=== PATIENT | female | born 1955 | race Caucasian/White ===

== ENCOUNTER 2016-09-22 17:26 | Emergency (ER) | payer OTHER ==
[~2016-09-22] VITALS: Ht 165.1 cm; Wt 77.1 kg
[2016-09-22 17:31] VITALS: BP 117/74; PULSE 75; RESP 17; TEMP 98.8; O2SAT 98
--- NOTE | 2016-09-22 17:31 | NUR ---
Patient triaged and placed in waiting room. VSS and patient appears in no acute distress at this time. Accompanied by self, awaiting available bed, and MD notified of need for MSE.
[2016-09-22 19:15] LABS: BASOPHILS % (AUTO) 0.5 % (0.0-2.0); EOSINOPHILS # (AUTO) 0.2 K/uL (0.0-0.4); EOSINOPHILS % (AUTO) 1.8 % (0.0-4.0); HEMATOCRIT 39.3 % (36-48); HEMOGLOBIN 13.5 g/dL (12.0-16.0); LYMPHOCYTES # (AUTO) 2.7 K/uL (1.0-5.5); LYMPHOCYTES % (AUTO) 30.7 % (20.5-51.5); MEAN CORPUSCULAR HEMOGLOBIN 31 pg (27-31); MEAN CORPUSCULAR HGB CONC 34 % (32-36); MEAN CORPUSCULAR VOLUME 89 fL (79.0-98.0); MONOCYTES # (AUTO) 0.5 K/uL (0.0-1.0); MONOCYTES % (AUTO) 6.2 % (1.7-9.3); NEUTROPHILS # (AUTO) 5.3 K/uL (1.8-7.7); NEUTROPHILS % (AUTO) 60.8 % (40.0-70.0); PLATELET COUNT (AUTO) 432 K/uL (130-430); RED BLOOD CELL COUNT(AUTO) 4.41 MIL/uL (4.2-6.2); RED CELL DISTRIBUTION WIDTH 11.9 % (9.0-15.0); WHITE BLOOD COUNT (AUTO) 8.7 K/uL (4.8-10.8)
[2016-09-22 19:21] LABS: CALCIUM 8.8 mg/dL (8.4-11.0); CREATININE 0.95 mg/dL (0.55-1.30); POTASSIUM 3.6 mmol/L (3.5-5.1)
[2016-09-22 19:25] LABS: ALBUMIN 3.5 g/dL (3.4-4.8); TOTAL BILIRUBIN 0.3 mg/dL (0.0-1.0); TOTAL PROTEIN, SERUM 6.8 g/dL (6.4-8.3)
--- NOTE | 2016-09-22 20:15 | NUR ---
ESME Anderson at bedside examining patient.
--- NOTE | 2016-09-22 20:15 | NUR ---
Placed in room 03 . Placed on warp coiler, blood pressure machine and pulse oximeter. To gown for exam. Side rails up. Report given to KASIA Barkley.
--- NOTE | 2016-09-22 20:16 | NUR ---
Patient AAO x4, sitting in bed, c/o lower abd pain 01/18 with N/V since 1pm, had lunch at [employer] and shortly after developed symptoms. Denies chest pain, denies shortness of breath. No acute distress noted. Will continue to monitor.
--- NOTE | 2016-09-22 20:20 | NUR ---
ER at bedside examining patient.
[2016-09-22] MEDS ORDERED: KETOROLAC TROMETHAMINE 30 MG VIAL IVP ONE (20:30)
[2016-09-22] MEDS ORDERED: MAG HYDROX/AL HYDROX/SIMETH 30 ML, LIDOCAINE VISCOUS 2% 15ML (PO) 10 ML, BELLADONNA ALK... PO ONE ×3 (20:30)
[2016-09-22] MEDS ORDERED: NACL 0.9% 1,000 ML IV ONE (20:30)
[2016-09-22] MEDS ORDERED: ONDANSETRON HCL 4 MG/2 ML VIAL IVP ONE (20:30)
--- NOTE | 2016-09-22 20:55 | NUR ---
#22 gauge angiocath placed to L forearm. Use of asceptic technique. Opsite placed over site. Blood return noted. Flushed with 10 cc of normal saline. No evidence of infiltration noted. Patient tolerated well.
[2016-09-22 21:33] LABS: BILIRUBIN,URINE NEGATIVE (NEGATIVE); BLOOD, URINE NEGATIVE (NEGATIVE); CLARITY/URINE CLEAR (CLEAR); COLOR,URINE YELLOW (YELLOW); GLUCOSE,URINE NEGATIVE (NEGATIVE); KETONES,URINE NEGATIVE (NEGATIVE); LEUKOCYTE ESTERASE ,URINE NEGATIVE (NEGATIVE); NITRITE, URINE NEGATIVE (NEGATIVE); PH,URINE 5.5 (5.0-8.0); PROTEIN URINE NEGATIVE (NEGATIVE); UROBILINOGEN,URINE 0.2 (0.2-1.0)
--- NOTE | 2016-09-22 21:57 | NUR ---
Pt on stable condition, states pain level is 5/10 at this time
[2016-09-22 22:59] VITALS: BP 115/75; PULSE 75; RESP 17; TEMP 98.8; O2SAT 98
--- NOTE | 2016-09-22 22:59 | NUR ---
Patient given written and verbal discharge instructions and verbalizes understanding. ER MD discussed with patient the results and treatment provided. Patient in stable condition. ID arm band removed. IV catheter removed intact and dressing applied, no active bleeding. Rx of Zofran given. Patient educated on pain management and to follow up with PMD. Pain Scale 0/10. Opportunity for questions provided and answered.
== END 2016-09-22 22:59 | disposition home or self-care (01) ==
LOC: SED 17:26
DX: K52.9 Noninfective gastroenteritis and colitis, unspecified (principal); I10 Essential (primary) hypertension; E78.5 Hyperlipidemia, unspecified; Z91.02 Food additives allergy status; Z86.79 Personal history of other diseases of the circulatory system
CPT/HCPCS: 36415; 74176; 80053; 81003; 83690; 85025; 96361; 96374; 96375; 99285; J1885; J2001; J2405; J7030

== ENCOUNTER 2018-04-17 18:35 | Emergency (ER) | payer OTHER ==
[~2018-04-17] VITALS: Ht 167.6 cm; Wt 72.6 kg
[2018-04-17 19:08] VITALS: BP_SYST 141
[2018-04-17] MEDS ORDERED: MORPHINE 4 MG/ML INJ. SYRINGE IVP ONE (20:00)
[2018-04-17] MEDS ORDERED: KETOROLAC TROMETHAMINE 30 MG VIAL IVP ONE (21:15)
[2018-04-17] MEDS ORDERED: MORPHINE 2 MG/ML INJ. SYRINGE IVP ONE (22:30)
[2018-04-17 23:11] VITALS: BP_SYST 133
== END 2018-04-17 23:11 | disposition home or self-care (01) ==
LOC: SED 18:35
DX: G89.29 Other chronic pain (principal); M54.6 Pain in thoracic spine; E78.5 Hyperlipidemia, unspecified; I10 Essential (primary) hypertension; Z86.79 Personal history of other diseases of the circulatory system; Z90.710 Acquired absence of both cervix and uterus; Z91.041 Radiographic dye allergy status
CPT/HCPCS: 96374; 96375; 96376; 99284; J1885; J2270 ×2

== ENCOUNTER 2018-06-04 20:39 | Inpatient (IN) | payer OTHER ==
[~2018-06-04] VITALS: Ht 167.6 cm; Wt 81.6 kg
[2018-06-04 21:10] VITALS: BP_SYST 139
--- NOTE | 2018-06-04 21:30 | NUR ---
Patient to ER bed 03 for evaluation. Side rails up.
--- NOTE | 2018-06-04 21:37 | NUR ---
Pt AAOx4 ambulated into ED c/o L foot pain radiating up to L knee x 3 days. Pt reports numbness and tingling to feet. Pt denies tauma to leg. Skin pink dry and warm, breathing even and unlabored. Daughter at bedside. No other injuries/complaints per pt/noted. Will continue to monitor.
--- NOTE | 2018-06-04 22:48 | NUR ---
Pt resting comfortably with no signs of distress.
--- NOTE | 2018-06-04 23:33 | NUR ---
Care endrosed to Rubia PEDROZA
--- NOTE | 2018-06-05 00:45 | NUR ---
ER at bedside examining patient.
[2018-06-05 01:46] LABS: BASOPHILS # (AUTO) 0.1 K/uL (0.0-0.2); BASOPHILS % (AUTO) 1.2 % (0.0-2.0); EOSINOPHILS # (AUTO) 0.2 K/uL (0.0-0.4); HEMATOCRIT 36.6 % (36-48); HEMOGLOBIN 12.4 g/dL (12.0-16.0); LYMPHOCYTES # (AUTO) 2.7 K/uL (1.0-5.5); LYMPHOCYTES % (AUTO) 37.7 % (20.5-51.5); MEAN CORPUSCULAR HEMOGLOBIN 30 pg (27-31); MEAN CORPUSCULAR HGB CONC 34 % (32-36); MEAN CORPUSCULAR VOLUME 89 fL (79.0-98.0); MONOCYTES # (AUTO) 0.6 K/uL (0.0-1.0); MONOCYTES % (AUTO) 8.2 % (1.7-9.3); NEUTROPHILS # (AUTO) 3.6 K/uL (1.8-7.7); NEUTROPHILS % (AUTO) 49.9 % (40.0-70.0); PLATELET COUNT (AUTO) 474 K/uL (130-430); RED BLOOD CELL COUNT(AUTO) 4.13 MIL/uL (4.2-6.2); RED CELL DISTRIBUTION WIDTH 12.5 % (9.0-15.0); WHITE BLOOD COUNT (AUTO) 7.2 K/uL (4.8-10.8)
[2018-06-05 02:10] LABS: CREATININE 0.73 mg/dL (0.55-1.30); POTASSIUM 3.2 mmol/L (3.5-5.1)
[2018-06-05 02:15] LABS: TOTAL BILIRUBIN 0.4 mg/dL (0.0-1.0)
[2018-06-05] MEDS ORDERED: HEPARIN 25,000 UNITS/D5W 250ML 250 ML IV ONE (02:45)
[2018-06-05] MEDS ORDERED: *HEPARIN PER PHARMACY XX ONE (04:00)
--- NOTE | 2018-06-05 04:14 | NUR ---
Patient will be admitted to care of Jaycob PEDROZA. Admitted to Tele unit. Will go to room 106B. Belongings list completed. Summary report printed. Report will be given at bedside.
[2018-06-05 04:15] VITALS: BP_SYST 157
--- NOTE | 2018-06-05 04:15 | NUR ---
ADMISSION NOTE Received patient from ER via gurney. Patient admitted with diagnosis of LEG PAIN. Patient is awake, alert, oriented X4. Patient oriented to hospital room, call light, toileting, pain management and safety-teach back done. Patient informed that DARNELL will be HER nurse and that their room number is 106B. Personal belongings checked and Belongings List documented. Call light within reach. Addendum: 06/05/18 at 0441 by Joshua Dickinson RN Patient denies suicidal ideation at this time.
[2018-06-05] MEDS ORDERED: HEPARIN 25,000 UNITS in 250 ML PREMIX IV PRN (04:45)
[2018-06-05] MEDS ORDERED: HEPARIN SODIUM,PORCINE 3000 UNITS/0.6 ML BOLUS IVP ONE (05:00)
[2018-06-05] MEDS ORDERED: HEPARIN SODIUM,PORCINE 3000 UNITS/0.6 ML BOLUS IVP PRN (05:15)
[2018-06-05] MEDS ORDERED: HEPARIN SODIUM,PORCINE 2000 UNITS/0.4 ML BOLUS IVP PRN (05:15)
--- NOTE | 2018-06-05 05:30 | NUR ---
heparin drip at 14ml/hr =1400 units /hr initiated after bolus of 6000 units to right ac.repositioned due to slow flushes.
[2018-06-05] MEDS ORDERED: MILK OF MAGNESIA 30 ML UDC PO PRN (05:45)
[2018-06-05] MEDS ORDERED: HYDROcodone/ACETAMIN 5-325 MG TAB (NORCO/ VICODIN) PO PRN (05:45)
[2018-06-05] MEDS ORDERED: LORazepam 2 MG/ML VIAL IVP PRN (05:45)
[2018-06-05] MEDS ORDERED: ACETAMINOPHEN 325 MG TABLET PO PRN (05:45)
[2018-06-05] MEDS ORDERED: ZOLPIDEM TARTRATE 5 MG TABLET PO PRN (05:45)
[2018-06-05] MEDS ORDERED: DOCUSATE SODIUM 100 MG CAPSULE PO PRN (05:45)
[2018-06-05] MEDS ORDERED: ONDANSETRON HCL 4 MG/2 ML VIAL IVP PRN (05:45)
--- NOTE | 2018-06-05 05:57 | NUR ---
Paged Dr. Treadwell, dialed [phone]. KASIA Major spoke to the doctor.
[2018-06-05] MEDS ORDERED: OXYCODONE/ACETAMINOPHEN *10*mg/325 mg TABLET PO PRN (06:00)
[2018-06-05] MEDS ORDERED: POTASSIUM CHLORIDE 20 MEQ TAB.PRT.SR PO ONE (06:00)
--- NOTE | 2018-06-05 06:05 | NUR ---
CLOSING: FULL REPORT GIVEN TO AM RN. ALERT ORIENTED X4. MEDICATED WITH MORPHINE 1MG FOR UPPER BACK PAIN. ALL NEEDS WERE ATTENDED. SINUS RHYTHM. NO DISTRESS.
--- NOTE | 2018-06-05 06:20 | NUR ---
new iv line inserted to left ac #22 by marina camacho, NORMAL SALINE 60ML STARTED. K LEVEL 3.2 .40MEQPO GIVEN.
--- NOTE | 2018-06-05 06:30 | NUR ---
assisted to bathroom to void, advice to be on bedrest due to thrombosis.
[2018-06-05] MEDS: MORPHINE 4 MG/ML INJ. SYRINGE IVP PRN ×4 (06:45→21:59)
[2018-06-05] MEDS: NACL 0.9% 1,000 ML IV SCH ×2 (07:00→22:18)
--- NOTE | 2018-06-05 08:00 | NUR ---
OPENING NOTES, PT IN BED, JUST CAME BACK FROM BATHROOM. PT IS AAOX4, C/O 3/10 PAIN ON HER UPPER BACK. NO SOB, NO DISTRESS. PT GETTING HEPARIN DRIP AT 1400UNITS / HR. NO S/S OF BLEEDING. IV FLUIDS INFUSING WELL. IV ACCESSES ARE INTACT AND PATENT. NO S/S OF INFILTRATIONS ON THE IV SITES. SAFETY PRECAUTION IN PLACE. CALL LIGHT IN EASY REACH, BED IN LOW POSITION. PT ENCOURAGED TO CALL OF ANY S./S OF BLEEDING, PAIN MEDS, AND ANY CONCERNS. WILL CONT TO MONITOR.
[2018-06-05 08:30] VITALS: BP_SYST 150
[2018-06-05 09:07] LABS: PHOSPHORUS 4.4 mg/dL (2.7-4.5); THYROID STIMULATING HORMONE 2.69 uIu/mL (0.34-4.82)
[2018-06-05] MEDS ORDERED: guaiFENesin 200 MG/CODEINE 20 MG/ 10 ML UDC PO PRN (10:00)
--- NOTE | 2018-06-05 10:43 | NUR ---
PT GIVEN PAIN MEDICATION FOR 7-8 /10 ON HER UPPER BACK. HEPARIN DRIP INFUSING WELL. NO BLEEDING NOTED.
--- NOTE | 2018-06-05 12:00 | NUR ---
URINE SAMPLE COLLECTED, WILL SEND TO LAB.
[2018-06-05 12:02] VITALS: BP_SYST 135
[2018-06-05 12:27] LABS: BILIRUBIN,URINE NEGATIVE (NEGATIVE); BLOOD, URINE NEGATIVE (NEGATIVE); COLOR,URINE YELLOW (YELLOW); GLUCOSE,URINE NEGATIVE (NEGATIVE); KETONES,URINE NEGATIVE (NEGATIVE); LEUKOCYTE ESTERASE ,URINE 2+ (NEGATIVE); NITRITE, URINE POSITIVE (NEGATIVE); PH,URINE 6.5 (5.0-8.0); PROTEIN URINE NEGATIVE (NEGATIVE); UROBILINOGEN,URINE 0.2 (0.2-1.0)
[2018-06-05 12:28] LABS: CLARITY/URINE HAZY (CLEAR)
[2018-06-05 12:33] LABS: RBC,URINE 0-3 /HPF (0-3); WBC,URINE 50-80 /HPF (0-3)
[2018-06-05 12:34] LABS: BACTERIA,URINE MANY /HPF (None Seen); MUCUS,URINE 1+ /LPF (None Seen)
--- NOTE | 2018-06-05 14:07 | NUR ---
PT IN BED, NO C/O PAIN. NO SOB, NO DISTRESS. NO BLEEDING. IV FLUIDS AND HEPARIN DRIP INFUSING WELL.
--- NOTE | 2018-06-05 15:53 | NUR ---
PT GIVEN PAIN MED FOR PAIN LEVEL 7/10. WILL CONT TO MONITOR PT. HEPARIN DRIP INFUSING WELL. NO S/S OF BLEEDING.
[2018-06-05 16:02] VITALS: BP_SYST 122
[2018-06-05] MEDS ORDERED: IPRATROPIUM/ALBUTEROL SULFATE 3 ML AMPUL.NEB (DUONEB) INH PRN (17:30)
[2018-06-05 17:32] VITALS: BP_SYST 122
[2018-06-05] MEDS: RIVAROXABAN 15 MG TABLET PO SCH (17:47)
--- NOTE | 2018-06-05 17:53 | NUR ---
HEPARIN DRIP DISCONTINUED AND PO XARELTO GIVEN. PT EATING DINNER AT THIS TIME.
[2018-06-05] MEDS ORDERED: cefTRIAXone 1 GM in D5W 50 ML IV SCH (18:00)
--- NOTE | 2018-06-05 18:25 | NUR ---
PT STILL UNABLE TO GET HOLD OF HER DAUGHTER WHO WILL GIVE HER THE LIST OF HER MEDICATIONS.
--- NOTE | 2018-06-05 18:28 | NUR ---
CLOSING NOTES, PT HAS BEEN STABLE, NO BLEEDING NOTED OR REPORTED. PT GIVEN PAIN MEDS REQUESTED AND HAD GOOD PAIN RELIEF. XARELTO GIVEN AND HEPARIN DRIP STOPPED ORDERED BY MD. IV ROCEPHIN GIVEN ORDERED. PT UNABLE TO PROVIDE HOME MED LIST. WILL ENDORSE TO NIGHT RN.
[2018-06-05 20:00] VITALS: BP_SYST 116
--- NOTE | 2018-06-05 20:00 | NUR ---
INITIAL NOTES: PATIENT IN BED AWAKE ORIENTED X4. VITAL SIGNS TAKEN .ALL NORMAL. CALL LIGHT WITHIN REACH. BED IN LOW POSITION. SINUS RHYTHM. WILL MONITOR.
[2018-06-05] MEDS ORDERED: BACL20TA PO (21:39)
[2018-06-05] MEDS ORDERED: LIP10 PO (21:39)
[2018-06-05] MEDS ORDERED: PANT40TA4 PO (21:39)
[2018-06-05] MEDS ORDERED: GABA-531 PO (21:39)
[2018-06-05] MEDS ORDERED: ESCI20TA PO (21:39)
[2018-06-05] MEDS ORDERED: BACLOFEN 10 MG TABLET PO PRN (21:45)
[2018-06-05] MEDS ORDERED: GABAPENTIN 300 MG CAPSULE PO SCH (22:00)
[2018-06-05] MEDS ORDERED: ATORVASTATIN 10 MG TABLET PO SCH (22:00)
--- NOTE | 2018-06-05 22:00 | NUR ---
ALL DUE MEDS GIVEN ORDERED PER MED REC.
--- NOTE | 2018-06-06 | NUR ---
AWAKE TALKING TO HER ROOM MATE. NO DISTRESS.
[2018-06-06 00:32] VITALS: BP_SYST 139
--- NOTE | 2018-06-06 02:00 | NUR ---
RESTING WITH EYES CLOSE.
[2018-06-06] MEDS: MORPHINE 4 MG/ML INJ. SYRINGE IVP PRN ×2 (06:07→12:13)
--- NOTE | 2018-06-06 06:07 | NUR ---
PAIN: PATIENT IS AWAKE CONVERSING WITH ROOM MATE. COMPLAIN OF UPPER BACK PAIN LEVEL 8/10.MORPHINE 1MG IV GIVEN.
[2018-06-06] MEDS ORDERED: PANTOPRAZOLE SODIUM 40 MG TAB PO SCH (07:00)
--- NOTE | 2018-06-06 07:00 | NUR ---
closing: SLEPT AT SHORT INTERVALS. NO ACUTE CARDIOPULMONARY DISTRESS. ALL NEEDS WERE MET. VOIDING WELL. PAIN CONTROLLED BY MORPHINE IV.
[2018-06-06 08:00] VITALS: BP_SYST 117
--- NOTE | 2018-06-06 08:00 | NUR ---
Opening Note/Refuse bed alarm received report from vial gauger RN, pt resting in bed, A&Ox4, respirations even and unlabored on room air, pt reports pain is controlled at this time, no acute distress noted, IV site clean, dry, and intact, pt educated on use of call light and asked to call for assistance, pt verbalized understanding, call light in reach, pt educated on use of bed alarm for pt safety, pt refusing bed alarm, bed in low and locked position, fall and aspiration precautions in place.
[2018-06-06] MEDS: RIVAROXABAN 15 MG TABLET PO SCH (08:12)
--- NOTE | 2018-06-06 08:14 | NUR ---
Medication pt educated on medication use and side effects, pt verbalized understanding, tolerated medication administration well, no acute distress noted, fall and aspiration precautions in place.
[2018-06-06] MEDS ORDERED: CITALOPRAM HYDROBROMIDE 20 MG TABLET PO SCH (09:00)
[2018-06-06] MEDS ORDERED: ESCITALOPRAM OXALATE 10 MG TABLET PO SCH (09:00)
[2018-06-06] MEDS ORDERED: LACTOBACILLUS RHAMNOSUS GG 1 CAP CAPSULE PO SCH (09:00)
[2018-06-06 10:11] LABS: CALCIUM 8.9 mg/dL (8.4-11.0); CREATININE 0.65 mg/dL (0.55-1.30); PHOSPHORUS 3.2 mg/dL (2.7-4.5); POTASSIUM 3.4 mmol/L (3.5-5.1)
[2018-06-06 10:17] LABS: BASOPHILS # (AUTO) 0.1 K/uL (0.0-0.2); BASOPHILS % (AUTO) 1.2 % (0.0-2.0); EOSINOPHILS # (AUTO) 0.2 K/uL (0.0-0.4); EOSINOPHILS % (AUTO) 3.2 % (0.0-4.0); HEMATOCRIT 37.6 % (36-48); HEMOGLOBIN 12.2 g/dL (12.0-16.0); LYMPHOCYTES # (AUTO) 1.8 K/uL (1.0-5.5); LYMPHOCYTES % (AUTO) 24.4 % (20.5-51.5); MEAN CORPUSCULAR HEMOGLOBIN 29 pg (27-31); MEAN CORPUSCULAR HGB CONC 33 % (32-36); MEAN CORPUSCULAR VOLUME 90 fL (79.0-98.0); MONOCYTES # (AUTO) 0.6 K/uL (0.0-1.0); MONOCYTES % (AUTO) 8.5 % (1.7-9.3); NEUTROPHILS # (AUTO) 4.9 K/uL (1.8-7.7); NEUTROPHILS % (AUTO) 62.7 % (40.0-70.0); PLATELET COUNT (AUTO) 525 K/uL (130-430); RED BLOOD CELL COUNT(AUTO) 4.17 MIL/uL (4.2-6.2); RED CELL DISTRIBUTION WIDTH 12.8 % (9.0-15.0); WHITE BLOOD COUNT (AUTO) 7.6 K/uL (4.8-10.8)
--- NOTE | 2018-06-06 10:20 | NUR ---
RN Rounds pt resting in bed, reports pain is controlled at this time, no acute distress noted, fall and aspiration precautions in place.
[2018-06-06 12:00] VITALS: BP_SYST 137
[2018-06-06] MEDS ORDERED: POTASSIUM CHLORIDE 10 MEQ TAB.PRT.SR PO ONE (12:00)
--- NOTE | 2018-06-06 12:14 | NUR ---
Pain Management/Medication pt complaint of pain 01/18 to upper back, pt educated on use and side effects of medication, pt verbalized understanding, tolerated medication administration well, no acute distress noted, pt eating lunch, fall and aspiration precautions in place.
[2018-06-06 12:56] VITALS: BP_SYST 137
[2018-06-06] MEDS ORDERED: RIVA15TA PO (13:04)
[2018-06-06] MEDS ORDERED: NITR-85 PO (13:05)
--- NOTE | 2018-06-06 13:05 | NUR ---
RN Rounds pt resting in bed, pt states that daughter will be picking her up after 1400 for discharge home, no acute distress noted, pt states that pain is controlled at this time, fall and aspiration precautions in place.
[2018-06-06] MEDS: NACL 0.9% 1,000 ML IV SCH (14:52)
--- NOTE | 2018-06-06 15:00 | NUR ---
RN Rounds pt resting in bed, pt reports pain is controlled at this time, pt states that her daughter is on her way to pick her up for D/C home, fall and aspiration precautions in place.
--- NOTE | 2018-06-06 16:05 | NUR ---
Discharge orders to discharge pt home, discharge packet and instructions provided, written prescription for xarelto and macrobid provided, pt instructed to follow up with PCP in 1-2 weeks, understanding verbalized, IV catheters removed x2, catheters intact, no bleeding, tele monitor removed, pt stable, no acute distress noted, all belongings sent with pt, pt accompanied by spouse and daughter for discharge, pt taken to parking lot via wheelchair.
[2018-06-06] MEDS ORDERED: GABAPENTIN 300 MG CAPSULE PO SCH (21:00)
[2018-06-06] MEDS ORDERED: ATORVASTATIN 10 MG TABLET PO SCH (21:00)
== END 2018-06-06 16:00 | disposition home or self-care (01) | DRG 197 ==
LOC: SED 20:39 → STU 06-05 02:41
PROVIDERS: ADMIT Family Medicine; ATTEND Family Medicine
DX: I82.890 Acute embolism and thrombosis of other specified veins (principal); E44.1 Mild protein-calorie malnutrition; E66.9 Obesity, unspecified; E78.5 Hyperlipidemia, unspecified; E87.6 Hypokalemia; N39.0 Urinary tract infection, site not specified; G89.4 Chronic pain syndrome; J45.909 Unspecified asthma, uncomplicated; M48.00 Spinal stenosis, site unspecified; I82.442 Acute embolism and thrombosis of left tibial vein; I10 Essential (primary) hypertension; G62.9 Polyneuropathy, unspecified
CPT/HCPCS: 36415; 70450-TC; 71045; 80048; 80053; 80061; 81000-TC; 82550-TC; 82962; 83036; 83690-TC; 83735-TC; 83880; 84100-TC; 84443-TC; 85025; 85379; 85730-TC; 87086; 93005; 93971; 99285; J0696; J1644; J2270; J2405; J7030; J7060

== ENCOUNTER 2018-08-03 20:09 | Emergency (ER) | payer OTHER ==
[~2018-08-03] VITALS: Ht 167.6 cm; Wt 81.6 kg
[~2018-08-03 20:09] MED LIST: BACL20TA PO; ESCI20TA PO; GABA-531 PO; LIP10 PO; NITR-85 PO; PANT40TA4 PO; RIVA15TA PO
[2018-08-03 20:15] VITALS: BP_SYST 135
[2018-08-04 00:29] VITALS: BP_SYST 135
== END 2018-08-04 00:29 | disposition home or self-care (01) ==
LOC: SED 20:09
DX: M25.561 Pain in right knee (principal); M25.562 Pain in left knee; J45.909 Unspecified asthma, uncomplicated; E78.5 Hyperlipidemia, unspecified; I10 Essential (primary) hypertension; Z86.79 Personal history of other diseases of the circulatory system; Z90.710 Acquired absence of both cervix and uterus; Z91.041 Radiographic dye allergy status; Z79.899 Other long term (current) drug therapy
CPT/HCPCS: 93970; 99284

== ENCOUNTER 2019-04-24 18:46 | Emergency (ER) | payer OTHER ==
[~2019-04-24] VITALS: Ht 167.6 cm; Wt 77.1 kg
[2019-04-24 18:56] VITALS: BP_SYST 138
--- NOTE | 2019-04-24 20:43 | NUR ---
Patient to ER bed H1 to gown for evaluation. Side rails up.
--- NOTE | 2019-04-24 20:57 | NUR ---
PATIENT COMPLAINS OF CHRONIC BACK PAIN BETWEEN SHOULDER BLADES X 5 DAYS. PATIENT REPORTS TAKING PERCOCET FOR PAIN WITH MILD RELIEF. PATIENT ALSO COMPLAINS THAT 5 DAYS AGO SHE SLAMMED HER RIGHT THUMB INTO THE CAR DOOR. SWELLING NOTED AT JOINT. PATIENT HAS LIMITED RANGE OF MOTION. PAIN 7/10. NO OTHER COMPLAINTS/INJURIES PER PATIENT OR NOTED. WILL CONTINUE TO MONITOR.
--- NOTE | 2019-04-24 21:32 | NUR ---
ER Dr. SHULTZ at bedside examining patient.
[2019-04-24] MEDS ORDERED: KETOROLAC TROMETHAMINE 30 MG VIAL IM ONE (22:00)
[2019-04-24 23:50] VITALS: BP_SYST 126
--- NOTE | 2019-04-24 23:50 | NUR ---
Patient given written and verbal discharge instructions and verbalizes understanding. ER MD discussed with patient the results and treatment provided. Patient in stable condition. ID arm band removed. NO RX given. Patient educated on pain management and to follow up with PMD IN 2-3 DAYS. Pain Scale 0/10 Opportunity for questions provided and answered. Medication side effect fact sheet provided.
== END 2019-04-24 23:50 | disposition home or self-care (01) ==
LOC: SED 18:46
DX: S63.601A Unspecified sprain of right thumb, initial encounter (principal); G89.29 Other chronic pain; M54.9 Dorsalgia, unspecified; I10 Essential (primary) hypertension; E78.5 Hyperlipidemia, unspecified; J45.909 Unspecified asthma, uncomplicated; Z86.79 Personal history of other diseases of the circulatory system; Z91.041 Radiographic dye allergy status; Z79.899 Other long term (current) drug therapy; X58.XXXA Exposure to other specified factors, initial encounter; Y93.89 Activity, other specified; Y92.89 Other specified places as the place of occurrence of the external cause; Y99.8 Other external cause status
CPT/HCPCS: 29125; 73130; 96372; 99283; J1885

== ENCOUNTER 2019-05-05 17:13 | Emergency (ER) | payer OTHER ==
[~2019-05-05] VITALS: Ht 167.6 cm; Wt 77.1 kg
[2019-05-05 17:17] VITALS: BP_SYST 132
--- NOTE | 2019-05-05 17:25 | NUR ---
Patient to ER bed 6 to gown for evaluation. Side rails up. Report given to .
--- NOTE | 2019-05-05 17:28 | NUR ---
pt arrives w/ c /o CP since last night. Pt did not take anything for the CP. EKG done at the bedside.
--- NOTE | 2019-05-05 17:38 | NUR ---
ER at bedside examining patient.
[2019-05-05 17:52] LABS: BASOPHILS # (AUTO) 0.1 K/uL (0.0-0.2); BASOPHILS % (AUTO) 0.9 % (0.0-2.0); EOSINOPHILS # (AUTO) 0.2 K/uL (0.0-0.4); EOSINOPHILS % (AUTO) 3.3 % (0.0-4.0); HEMATOCRIT 33.1 % (36-48); HEMOGLOBIN 11.1 g/dL (12.0-16.0); LYMPHOCYTES # (AUTO) 1.9 K/uL (1.0-5.5); LYMPHOCYTES % (AUTO) 30.9 % (20.5-51.5); MEAN CORPUSCULAR HEMOGLOBIN 29 pg (27-31); MEAN CORPUSCULAR HGB CONC 34 % (32-36); MEAN CORPUSCULAR VOLUME 85 fL (79.0-98.0); MONOCYTES # (AUTO) 0.5 K/uL (0.0-1.0); MONOCYTES % (AUTO) 8.5 % (1.7-9.3); NEUTROPHILS # (AUTO) 3.5 K/uL (1.8-7.7); NEUTROPHILS % (AUTO) 56.4 % (40.0-70.0); PLATELET COUNT (AUTO) 409 K/uL (130-430); RED BLOOD CELL COUNT(AUTO) 3.88 MIL/uL (4.2-6.2); RED CELL DISTRIBUTION WIDTH 14.1 % (9.0-15.0); WHITE BLOOD COUNT (AUTO) 6.2 K/uL (4.8-10.8)
--- NOTE | 2019-05-05 17:55 | NUR ---
# 20 gauge angiocath placed to LFA. Use of asceptic technique. Opsite placed over site. Blood return noted. Blood for lab drawn from site. Flushed with 10 cc of normal saline. No evidence of infiltration noted. Patient tolerated well.
[2019-05-05 18:01] LABS: CALCIUM 8.1 mg/dL (8.4-11.0); CREATININE 0.94 mg/dL (0.55-1.30)
[2019-05-05 18:07] LABS: TOTAL BILIRUBIN 0.2 mg/dL (0.0-1.0)
[2019-05-05] MEDS ORDERED: GABA-531 PO (18:43)
[2019-05-05] MEDS ORDERED: RIVA10TA PO (18:45)
[2019-05-05] MEDS ORDERED: ALBU8.5H8 INH (18:47)
--- NOTE | 2019-05-05 18:47 | NUR ---
Medication reconciliation completed with information provided by patient. Any prior medication reconciliation on file was reviewed and corrected. Pt to bring dosage of Xeralto.
--- NOTE | 2019-05-05 19:09 | NUR ---
report given to Jamaal PEDROZA. Pt is in stable condition.
[2019-05-05] MEDS ORDERED: POTASSIUM CHLORIDE 20 MEQ/PKT PACKET PO ONE (19:15)
[2019-05-05 19:30] VITALS: BP_SYST 128
--- NOTE | 2019-05-05 19:30 | NUR ---
Patient given written and verbal discharge instructions and verbalizes understanding. ER MD discussed with patient the results and treatment provided. Patient in stable condition. ID arm band removed. IV catheter removed intact and dressing applied, no active bleeding. Patient educated on pain management and to follow up with PMD. Pain Scale 0/10 Opportunity for questions provided and answered.
== END 2019-05-05 19:30 | disposition left against medical advice (07) ==
LOC: SED 17:13
DX: E87.6 Hypokalemia (principal); R07.9 Chest pain, unspecified; J45.909 Unspecified asthma, uncomplicated; I10 Essential (primary) hypertension; Z88.8 Allergy status to other drugs, medicaments and biological substances; Z79.899 Other long term (current) drug therapy
CPT/HCPCS: 36415; 71045; 80053; 84484; 85025; 85379; 93005; 99284

== ENCOUNTER 2019-07-07 15:16 | Emergency (ER) | payer OTHER ==
[~2019-07-07] VITALS: Ht 167.6 cm; Wt 81.6 kg
[~2019-07-07 15:16] MED LIST changes: +ALBU8.5H8 INH; -BACL20TA PO; -ESCI20TA PO; -NITR-85 PO; -PANT40TA4 PO; +RIVA10TA PO; -RIVA15TA PO
[2019-07-07 15:18] VITALS: BP_SYST 129
--- NOTE | 2019-07-07 16:27 | NUR ---
Patient to ER bed 08 to gown for evaluation. Side rails up.
--- NOTE | 2019-07-07 16:30 | NUR ---
Patient complains of left upper arm pain s/p fall on [place]. Per patient she slipped on the ground, no knock out. No deformities noted. Pt has limited range of motion. No other injuries/complaints per patient or noted.
--- NOTE | 2019-07-07 17:00 | NUR ---
ER Dr. Patino at bedside examining patient.
[2019-07-07] MEDS ORDERED: KETOROLAC TROMETHAMINE 30 MG VIAL IM ONE (17:45)
[2019-07-07 18:08] VITALS: BP_SYST 122
--- NOTE | 2019-07-07 18:08 | NUR ---
Patient given written and verbal discharge instructions and verbalizes understanding. ER MD discussed with patient the results and treatment provided. Patient in stable condition. ID arm band removed. Rx of Ultram and Ibuprofen given. Patient educated on pain management and to follow up with PMD. Pain Scale 0. Opportunity for questions provided and answered. Medication side effect fact sheet provided.
== END 2019-07-07 18:08 | disposition home or self-care (01) ==
LOC: SED 15:16
DX: S40.022A Contusion of left upper arm, initial encounter (principal); J45.909 Unspecified asthma, uncomplicated; I10 Essential (primary) hypertension; E78.5 Hyperlipidemia, unspecified; M54.5 Low back pain; Z79.899 Other long term (current) drug therapy; Z88.8 Allergy status to other drugs, medicaments and biological substances; Z86.69 Personal history of other diseases of the nervous system and sense organs; Z86.718 Personal history of other venous thrombosis and embolism; Z86.79 Personal history of other diseases of the circulatory system; Z90.710 Acquired absence of both cervix and uterus; W18.39XA Other fall on same level, initial encounter; Y93.89 Activity, other specified; Y92.89 Other specified places as the place of occurrence of the external cause; Y99.8 Other external cause status
CPT/HCPCS: 73060; 96372; 99283; J1885

== ENCOUNTER 2019-09-04 12:14 | Emergency (ER) | payer OTHER ==
[~2019-09-04] VITALS: Ht 167.6 cm; Wt 81.6 kg
[2019-09-04 12:18] VITALS: BP_SYST 158
--- NOTE | 2019-09-04 12:24 | NUR ---
Patient triaged and placed in waiting room. VSS and patient appears in no acute distress at this time. Awaiting available bed, and MD notified of need for MSE.
--- NOTE | 2019-09-04 14:00 | NUR ---
MSE completed by myself.
[2019-09-04 14:34] LABS: BASOPHILS # (AUTO) 0.1 K/uL (0.0-0.2); EOSINOPHILS # (AUTO) 0.3 K/uL (0.0-0.4); EOSINOPHILS % (AUTO) 3.8 % (0.0-4.0); HEMATOCRIT 33.7 % (36-48); LYMPHOCYTES # (AUTO) 2.2 K/uL (1.0-5.5); LYMPHOCYTES % (AUTO) 33.1 % (20.5-51.5); MEAN CORPUSCULAR HEMOGLOBIN 27 pg (27-31); MEAN CORPUSCULAR HGB CONC 33 % (32-36); MEAN CORPUSCULAR VOLUME 83 fL (79.0-98.0); MONOCYTES # (AUTO) 0.5 K/uL (0.0-1.0); NEUTROPHILS # (AUTO) 3.6 K/uL (1.8-7.7); NEUTROPHILS % (AUTO) 54.1 % (40.0-70.0); PLATELET COUNT (AUTO) 514 K/uL (130-430); RED BLOOD CELL COUNT(AUTO) 4.05 MIL/uL (4.2-6.2); RED CELL DISTRIBUTION WIDTH 14.8 % (9.0-15.0); WHITE BLOOD COUNT (AUTO) 6.7 K/uL (4.8-10.8)
[2019-09-04 14:47] LABS: CALCIUM 8.5 mg/dL (8.4-11.0); CREATININE 0.81 mg/dL (0.55-1.30); POTASSIUM 3.4 mmol/L (3.5-5.1)
[2019-09-04 14:48] LABS: INR 0.9 (0.8-1.2); PROTHROMBIN TIME 9.3 SECS (9.5-12.5)
[2019-09-04 14:52] LABS: ALBUMIN 3.4 g/dL (3.4-4.8); TOTAL BILIRUBIN 0.3 mg/dL (0.0-1.0); URIC ACID 4.9 mg/dL (2.4-7.0)
--- NOTE | 2019-09-04 15:36 | NUR ---
Patient to [facility] for evaluation. Side rails up.
--- NOTE | 2019-09-04 15:37 | NUR ---
Patient is awake, alert, and oriented x4. Patient reports left foot swelling, left ankle pain. No other compmlaints.
--- NOTE | 2019-09-04 15:37 | NUR ---
ER RADHA Rob examining patient.
[2019-09-04] MEDS ORDERED: HYDROcodone/ACETAMIN 5-325 MG TAB (NORCO/ VICODIN) PO ONE (15:45)
--- NOTE | 2019-09-04 15:46 | NUR ---
Patient given written and verbal discharge instructions and verbalizes understanding. ER MD discussed with patient the results and treatment provided. Patient in stable condition. ID arm band removed. Rx of tylenol, tramadol, doxycycline given. Patient educated on pain management and to follow up with PMD. Pain Scale 8/10. Opportunity for questions provided and answered. Medication side effect fact sheet provided.
[2019-09-04 15:47] VITALS: BP_SYST 158
== END 2019-09-04 15:47 | disposition home or self-care (01) ==
LOC: SED 12:14
DX: I80.9 Phlebitis and thrombophlebitis of unspecified site (principal); R03.0 Elevated blood-pressure reading, without diagnosis of hypertension; J45.909 Unspecified asthma, uncomplicated; I10 Essential (primary) hypertension; E78.5 Hyperlipidemia, unspecified; Z86.718 Personal history of other venous thrombosis and embolism; Z86.73 Personal history of transient ischemic attack (TIA), and cerebral infarction without residual deficits; Z90.49 Acquired absence of other specified parts of digestive tract; Z90.710 Acquired absence of both cervix and uterus; Z79.899 Other long term (current) drug therapy; Z88.8 Allergy status to other drugs, medicaments and biological substances
CPT/HCPCS: 36415; 80053; 84550; 85025; 85610; 85730; 93971; 99284; J7030

== ENCOUNTER 2022-09-20 16:04 | Emergency (ER) | payer OTHER ==
[~2022-09-20] VITALS: Ht 167.6 cm; Wt 77.1 kg
[2022-09-20 16:05] VITALS: BP_SYST 121
[2022-09-20 16:42] LABS: BASOPHILS # (AUTO) 0.1 K/uL (0.0-0.2); BASOPHILS % (AUTO) 0.7 % (0.0-2.0); EOSINOPHILS # (AUTO) 0.4 K/uL (0.0-0.4); EOSINOPHILS % (AUTO) 6.2 % (0.0-4.0); HEMATOCRIT 38.6 % (36-48); HEMOGLOBIN 13.3 g/dL (12.0-16.0); LYMPHOCYTES # (AUTO) 2.2 K/uL (1.0-5.5); LYMPHOCYTES % (AUTO) 31.4 % (20.5-51.5); MEAN CORPUSCULAR HEMOGLOBIN 31 pg (27-31); MEAN CORPUSCULAR HGB CONC 35 % (32-36); MEAN CORPUSCULAR VOLUME 89 fL (79.0-98.0); MONOCYTES # (AUTO) 0.5 K/uL (0.0-1.0); MONOCYTES % (AUTO) 7.3 % (1.7-9.3); NEUTROPHILS # (AUTO) 3.8 K/uL (1.8-7.7); NEUTROPHILS % (AUTO) 54.4 % (40.0-70.0); PLATELET COUNT (AUTO) 374 K/uL (130-430); RED BLOOD CELL COUNT(AUTO) 4.34 MIL/uL (4.2-6.2); WHITE BLOOD COUNT (AUTO) 6.9 K/uL (4.8-10.8)
[2022-09-20 16:52] LABS: CALCIUM 8.5 mg/dL (8.4-11.0); CREATININE 1.04 mg/dL (0.55-1.30)
[2022-09-20 16:56] LABS: ALBUMIN 3.2 g/dL (3.4-4.8); TOTAL BILIRUBIN 0.4 mg/dL (0.0-1.0)
[2022-09-20 17:03] LABS: BILIRUBIN,URINE NEGATIVE (NEGATIVE); CLARITY/URINE CLEAR (CLEAR); COLOR,URINE YELLOW (YELLOW); GLUCOSE,URINE NEGATIVE (NEGATIVE); KETONES,URINE TRACE (NEGATIVE); LEUKOCYTE ESTERASE ,URINE TRACE (NEGATIVE); NITRITE, URINE NEGATIVE (NEGATIVE); PH,URINE 5.5 (5.0-8.0); PROTEIN URINE NEGATIVE (NEGATIVE); UROBILINOGEN,URINE 0.2 (0.2-1.0)
[2022-09-20 17:05] LABS: BLOOD, URINE TRACE (NEGATIVE)
[2022-09-20 17:15] LABS: BACTERIA,URINE RARE /HPF (None Seen); HYALINE CASTS, URINE 0-10 /LPF (None Seen); MUCUS,URINE 2+ /LPF (None Seen); RBC,URINE 0-3 /HPF (0-3)
[2022-09-20] MEDS ORDERED: POTASSIUM CHLORIDE 20 MEQ TAB.PRT.SR PO ONE (17:30)
[2022-09-20] MEDS ORDERED: ACET-2634 PO (18:00)
[2022-09-20 18:26] VITALS: BP_SYST 125
== END 2022-09-20 18:26 | disposition home or self-care (01) ==
LOC: SED 16:04
DX: K43.9 Ventral hernia without obstruction or gangrene (principal); R10.31 Right lower quadrant pain; J45.909 Unspecified asthma, uncomplicated; I10 Essential (primary) hypertension; E78.5 Hyperlipidemia, unspecified; Z91.041 Radiographic dye allergy status; Z79.899 Other long term (current) drug therapy
CPT/HCPCS: 36415; 76376; 80053; 81000; 83690; 85025; 99284

== ENCOUNTER 2022-12-22 06:13 | Day surgery (SDC) | payer OTHER ==
[~2022-12-22] VITALS: Ht 162.6 cm; Wt 77.1 kg
[~2022-12-22 06:13] MED LIST changes: +ACET-2634 PO
[2022-12-22] MEDS ORDERED: CEFAZOLIN SOD 2 GM in D5W 50 ML IV ONE (07:00)
[2022-12-22] MEDS ORDERED: MIDAZOLAM HCL 50 mg/10 mL INJ. VIAL ONE (07:47)
[2022-12-22] MEDS ORDERED: ePHEDrine sulfate 50 MG/ML VIAL ONE (07:47)
[2022-12-22] MEDS ORDERED: DEXAMETHASONE SOD PHOSPHATE 4 MG/ML VIAL ONE (07:47)
[2022-12-22] MEDS ORDERED: SEVOFLURANE 15 MIN GAS INH ONE (07:47)
[2022-12-22] MEDS ORDERED: NS IRRIG SOLN 1000 ML IR ONE (07:47)
[2022-12-22] MEDS ORDERED: SUGAMMADEX SODIUM 200 MG/2 ML VIAL IV ONE (07:47)
[2022-12-22] MEDS ORDERED: KETOROLAC TROMETHAMINE 30 MG VIAL ONE (07:47)
[2022-12-22] MEDS ORDERED: METOCLOPRAMIDE HCL 10 MG/2 ML VIAL ONE (07:47)
[2022-12-22] MEDS ORDERED: fentaNYL CITRATE/PF 100 MCG/2 ML AMP ONE (07:47)
[2022-12-22] MEDS ORDERED: ROCURONIUM BROMIDE 10 MG/ML (ZEMURON) ONE (07:47)
[2022-12-22] MEDS ORDERED: ONDANSETRON HCL 4 MG/2 ML VIAL ONE (07:47)
[2022-12-22] MEDS ORDERED: PROPOFOL 200MG/ 20ML VIAL (DIPRIVAN) IV ONE (07:47)
[2022-12-22] MEDS ORDERED: WATER FOR IRRIGATION,STERILE 1,000 ML IRRIG.SOLN IR ONE (07:47)
[2022-12-22] MEDS ORDERED: HYDROmorphone 1 MG/ML INJ. CARTRIDGE IVP PRN (08:30)
[2022-12-22] MEDS ORDERED: ONDANSETRON HCL 4 MG/2 ML VIAL IVP PRN (08:30)
[2022-12-22] MEDS ORDERED: KETOROLAC TROMETHAMINE 30 MG VIAL IVP PRN (08:30)
[2022-12-22] MEDS ORDERED: NALOXONE HCL 0.4 MG/ML AMP (NARCAN) IVP PRN (08:30)
[2022-12-22] MEDS ORDERED: BUPIVACAINE LIPOSOME/PF 266 MG/20 ML VIAL INFIL ONE (08:36)
[2022-12-22] MEDS: HYDROmorphone 1 MG/ML INJ. CARTRIDGE ONE ×2 (10:02→10:12)
[2022-12-22 15:39] VITALS: BP_SYST 145
== END 2022-12-22 11:35 | disposition home or self-care (01) ==
LOC: SDS 06:13 → SMU 06:14 → SDS 11:35
PROVIDERS: ATTEND Surgery
DX: K43.9 Ventral hernia without obstruction or gangrene (principal); J45.909 Unspecified asthma, uncomplicated; K21.9 Gastro-esophageal reflux disease without esophagitis; F32.A Depression, unspecified; E78.00 Pure hypercholesterolemia, unspecified; I10 Essential (primary) hypertension; Z88.1 Allergy status to other antibiotic agents; Z88.5 Allergy status to narcotic agent; Z79.899 Other long term (current) drug therapy
CPT/HCPCS: 87081; 49591; 88302; J3490; C9290; J0690; J1100; J1885; J2765; J2405; J2704; J3010; J1170; J7060; C1781

== ENCOUNTER 2023-03-10 11:03 | Emergency (ER) | payer OTHER ==
[~2023-03-10] VITALS: Ht 165.1 cm; Wt 81.6 kg
[2023-03-10 11:05] VITALS: BP_SYST 148; PULSE 88; RESP 18; TEMP 97.6; O2SAT 99
[2023-03-10] MEDS ORDERED: MORPHINE 4 MG INJ. 4 MG/ML VIAL IVP ONE (11:45)
[2023-03-10] MEDS ORDERED: KETOROLAC TROMETHAMINE 15 MG VIAL IVP ONE (12:15)
[2023-03-10 12:57] LABS: CLARITY/URINE CLEAR (CLEAR); COLOR,URINE YELLOW (YELLOW); GLUCOSE,URINE NEGATIVE (NEGATIVE); KETONES,URINE NEGATIVE (NEGATIVE); PH,URINE 5.5 (5.0-8.0); PROTEIN URINE TRACE (NEGATIVE)
[2023-03-10 12:58] LABS: BILIRUBIN,URINE NEGATIVE (NEGATIVE); BLOOD, URINE TRACE (NEGATIVE); LEUKOCYTE ESTERASE ,URINE TRACE (NEGATIVE); NITRITE, URINE NEGATIVE (NEGATIVE); UROBILINOGEN,URINE 0.2 (0.2-1.0)
[2023-03-10 13:03] LABS: BACTERIA,URINE FEW /HPF (None Seen); MUCUS,URINE 1+ /LPF (None Seen)
[2023-03-10 13:27] LABS: BASOPHILS % (AUTO) 0.7 % (0.0-2.0); EOSINOPHILS # (AUTO) 0.3 K/uL (0.0-0.4); EOSINOPHILS % (AUTO) 5.4 % (0.0-4.0); HEMATOCRIT 38.4 % (36-48); HEMOGLOBIN 12.9 g/dL (12.0-16.0); LYMPHOCYTES # (AUTO) 2.2 K/uL (1.0-5.5); LYMPHOCYTES % (AUTO) 35.2 % (20.5-51.5); MEAN CORPUSCULAR HEMOGLOBIN 30 pg (27-31); MEAN CORPUSCULAR HGB CONC 34 % (32-36); MEAN CORPUSCULAR VOLUME 90 fL (79.0-98.0); MONOCYTES # (AUTO) 0.5 K/uL (0.0-1.0); MONOCYTES % (AUTO) 7.7 % (1.7-9.3); NEUTROPHILS # (AUTO) 3.3 K/uL (1.8-7.7); PLATELET COUNT (AUTO) 375 K/uL (130-430); RED BLOOD CELL COUNT(AUTO) 4.27 MIL/uL (4.2-6.2); RED CELL DISTRIBUTION WIDTH 13.9 % (9.0-15.0); WHITE BLOOD COUNT (AUTO) 6.4 K/uL (4.8-10.8)
[2023-03-10 13:33] LABS: CALCIUM 8.7 mg/dL (8.4-11.0); CREATININE 0.85 mg/dL (0.55-1.30); POTASSIUM 3.2 mmol/L (3.5-5.1)
[2023-03-10 13:35] LABS: PROTHROMBIN TIME 9.9 SECS (9.5-12.5)
[2023-03-10] MEDS ORDERED: POTASSIUM CHLORIDE 20 MEQ TAB.PRT.SR PO ONE (13:45)
[2023-03-10 13:46] LABS: ALBUMIN 3.4 g/dL (3.4-4.8); TOTAL BILIRUBIN 0.6 mg/dL (0.0-1.0); TOTAL PROTEIN, SERUM 6.4 g/dL (6.4-8.3)
[2023-03-10] MEDS ORDERED: NITR-85 PO (14:07)
[2023-03-10 14:22] VITALS: BP_SYST 134; PULSE 88; RESP 16; TEMP 97.2; O2SAT 99
== END 2023-03-10 14:24 | disposition home or self-care (01) ==
LOC: SED 11:03
DX: N39.0 Urinary tract infection, site not specified (principal); R10.31 Right lower quadrant pain; I10 Essential (primary) hypertension; J45.909 Unspecified asthma, uncomplicated; Z88.8 Allergy status to other drugs, medicaments and biological substances; Z79.899 Other long term (current) drug therapy
CPT/HCPCS: 99285; 74176; 96374; 80053; 81000; 83690; 85025; 85610; 87086; 36415; 76376; J1885